=== PATIENT | male | born 1930 | race Caucasian/White ===

== ENCOUNTER 2019-01-28 02:12 | Emergency (ER) | payer MEDICARE, OTHER ==
[~2019-01-28] VITALS: Ht 188 cm; Wt 104.3 kg
[~2019-01-28 02:12] MED LIST: DORZ10DR11 OP; GLIM4TAB37 PO
[2019-01-28] MEDS ORDERED: IV D5W 1,000 ML IV ONE (02:33)
--- NOTE | 2019-01-28 02:33 | NUR ---
PT CAME TO ER BIB RA FROM HOME C/O OF LOW BLOOD SUGAR. PT 2 SONS AND 1 DAUGHTER AT BEDSIDE. PT'S SON STATES THAT PT HAS NOT BEED FEELING WELL FOR THE PAST COUPLE OF DAYS UNTIL PT BECAME UNRESPONSIVE TO VERBAL,MECHANICAL, OR PAINFUL STIMULI. PT'S SON STATES HE DID 5 CHEST COMPRESSIONS ORDERED BY THE EMS. PT'S SON STATES EMS ARRIVED ON THE SCENE AROUND 0150 AND CHECKED BLOOD SUGAR TO BE IN THE 20s. BLOOD SUGAR 82 CHECKED ON ASSESSMENT. VERBAL ORDER FOR 1000ML OF D5W @ 200ML/HR TO BE GIVEN TO PT. AAOX4. NO SOB. BREATHING EVENLY AND UNLABORED. CONNECTED TO MONITOR.
[2019-01-28 02:45] LABS: CALCIUM, SERUM 8.5 mg/dL (8.5-10.1); POTASSIUM 4.7 mmol/L (3.5-5.1)
[2019-01-28 02:49] LABS: BASOPHILS % (AUTO) 0.2 % (0.0-2.0); EOSINOPHILS % (AUTO) 3.4 % (0.0-6.0); HEMATOCRIT 51 % (39-51); HEMOGLOBIN 16.9 g/dL (13.5-17.5); LYMPHOCYTES # (AUTO) 0.6 /CMM (0.8-4.8); LYMPHOCYTES % (AUTO) 15.2 % (20.0-44.0); MEAN CORPUSCULAR HGB CONC 33 g/dl (31.0-36.0); MEAN CORPUSCULAR VOLUME 93 fL (80-96); MONOCYTES # (AUTO) 0.7 /CMM (0.1-1.30); MONOCYTES % (AUTO) 16.1 % (2.0-12.0); NEUTROPHILS # (AUTO) 2.7 /CMM (1.8-8.9); NEUTROPHILS % (AUTO) 65.1 % (43.0-81.0); PLATELET COUNT (AUTO) 166 /CMM (150-450); RED BLOOD CELL COUNT(AUTO) 5.49 MIL/uL (4.5-6.0); WHITE BLOOD COUNT (AUTO) 4.2 K/uL (4.3-11.0)
[2019-01-28 02:51] LABS: ALBUMIN 3.2 g/dL (3.4-5.0); BILIRUBIN,DIRECT 0.2 mg/dL (0.0-0.2); BILIRUBIN,TOTAL 0.4 mg/dL (0.2-1.0); TOTAL PROTEIN, SERUM 6.7 g/dL (6.4-8.2)
--- NOTE | 2019-01-28 03:15 | NUR ---
BLOOD SUGAR CHECKED, 50 ON FIRST TRY. REJECTED THE BLOOD SUGAR. RECHECKED BLOOD SUGAR AND GOT [address] DIEGO NOTIFIED. ORDERED TO INCREASE RATE OF D5W FROM 200ML/HR TO 300ML/HR.
--- NOTE | 2019-01-28 03:20 | NUR ---
2 PACKETS OF GURPREET CRACKERS, 2 OJ, 1 APPLE JUICE CONSUMED BY PT.
--- NOTE | 2019-01-28 03:57 | NUR ---
D5W INFUSION STOPPED PER MD'S ORDER. VERBAL ORDER FOR NORMAL SALINE 1L WIDE OPEN TO BE GIVEN INTRAVENOUSLY. WILL CARRY OUT ORDER.
[2019-01-28] MEDS ORDERED: IV NS 0.9% 1,000 ML BAG IV ONE (04:00)
--- NOTE | 2019-01-28 04:52 | NUR ---
PT SLEEPING COMFORTABLY WITH 1 NICHOLE T BEDSIDE. NO SOB. BREATHING EVENLY AND UNLABORED. WARM BLANKET OFFERED. CALL LIGHT WITHIN REACH.
--- NOTE | 2019-01-28 05:57 | NUR ---
DR HALL T BEDSIDE FOR REEVALUATION
[2019-01-28 06:02] LABS: EOSINOPHILS % (MANUAL) 3 % (0-4); LYMPHOCYTES % (MANUAL) 18 % (16-48); MONOCYTES % (MANUAL) 9 % (0-11.0); NEUTROPHILS % (MANUAL) 70 (42-76)
--- NOTE | 2019-01-28 06:14 | NUR ---
IV removed. Catheter intact and site benign. Pressure and 4x4 applied to site. No bleeding noted.Patient discharged to home in stable condition. Written and verbal after care instructions given. Patient verbalizes understanding of instruction. Patient is ambulatory with a steady gait. Patient verbalizes he will follow up with primary care physician tomorrow.
[2019-01-28 06:16] VITALS: BP 122/66
== END 2019-01-28 06:16 | disposition home or self-care (01) ==
LOC: ER 02:13
DX: E11.649 Type 2 diabetes mellitus with hypoglycemia without coma (principal); I45.10 Unspecified right bundle-branch block; Z79.899 Other long term (current) drug therapy
CPT/HCPCS: 36415; 80048; 80076; 82962 ×5; 85025; 93005; 96360; 96361; 99284; J7030; J7070